=== PATIENT | male | born 1940 | race Caucasian/White ===

== ENCOUNTER → 2016-07-22 07:37 | Outpatient (CLI) | payer MEDICARE, OTHER ==
[2015-09-16 10:30] VITALS: BMI 25.8
[~2016-07-22 07:37] MED LIST: BAYER CHEWABLE81 MG PO; CYMBALTA60 MG PO; FLUTICASONE PRO16 GM NASAL; FOLIC ACID1 MG; HYDROCODONE-APA1 TAB PO; LIPITOR20 MG PO; LOTENSIN20 MG PO; NASONEX NASAL S17 GM NS; PROTONIX40 MG PO; SEROQUEL50 MG PO; ULTRAM50 MG PO
== END | disposition home or self-care (01) ==
LOC: D.CT 07:37
DX: R51 Headache (principal); R59.0 Localized enlarged lymph nodes

== ENCOUNTER → 2016-09-01 10:17 | Outpatient (CLI) | payer MEDICARE, OTHER ==
[2015-09-16 10:30] VITALS: BMI 25.8
== END | disposition home or self-care (01) ==
LOC: D.CT 10:17
DX: Z85.46 Personal history of malignant neoplasm of prostate (principal)

== ENCOUNTER → 2016-09-26 12:34 | Outpatient (CLI) | payer MEDICARE, OTHER ==
[2015-09-16 10:30] VITALS: BMI 25.8
== END | disposition home or self-care (01) ==
LOC: D.US 12:34
DX: I73.9 Peripheral vascular disease, unspecified (principal); M79.605 Pain in left leg; M79.604 Pain in right leg

== ENCOUNTER → 2017-01-25 09:38 | Outpatient (CLI) | payer MEDICARE, OTHER ==
[2015-09-16 10:30] VITALS: BMI 25.8
== END | disposition home or self-care (01) ==
LOC: D.US 09:38
DX: R74.8 Abnormal levels of other serum enzymes (principal)

== ENCOUNTER → 2017-03-13 14:47 | Outpatient (CLI) | payer MEDICARE, OTHER ==
[2015-09-16 10:30] VITALS: BMI 25.8
== END | disposition home or self-care (01) ==
LOC: D.LABREF 14:47
DX: M17.12 Unilateral primary osteoarthritis, left knee (principal); Z11.2 Encounter for screening for other bacterial diseases

== ENCOUNTER → 2017-03-29 08:31 | Outpatient (CLI) | payer MEDICARE, OTHER ==
[2015-09-16 10:30] VITALS: BMI 25.8
== END | disposition home or self-care (01) ==
LOC: D.CT 08:31
DX: R10.9 Unspecified abdominal pain (principal)

== ENCOUNTER 2017-04-02 20:12 | Emergency (ER) | payer MEDICARE, OTHER ==
[2015-09-16 10:30] VITALS: BMI 25.8
[2017-04-02 22:02] LABS: BASOPHILS 0.5 % (0-2); EOSINOPHILS 2.2 % (0-7); IMMATURE GRANULOCYTES 0.3 % (0-5); LYMPHOCYTES 17.8 % (15-50); MCH 34.3 pg (26.0-34.0); MCHC 34.9 g/dL (31.0-37.0); MCV 98.4 fL (80.0-100.0); MEAN PLATELET VOLUME 11.1 fL (7.4-10.4); MONOCYTES 9.3 % (2-11); NEUTROPHILS 69.9 % (40-80); RBC 4.37 10x6/uL (4.20-6.10); RDW 15.1 % (11.5-14.5); WBC 7.6 10x3/uL (4.8-10.8)
[2017-04-02 22:03] LABS: PLATELET COUNT 143 10x3/uL (130-400)
[2017-04-02 22:13] LABS: ALBUMIN 2.9 g/dL (3.4-5.0); ALKALINE PHOSPHATASE 83 U/L (46-116); ALT (SGPT) 234 U/L (10-68); BILIRUBIN - TOTAL 1.15 mg/dL (0.2-1.3); CALC OSMOLALITY 289 mosm/kg (275-300); CALCIUM 9.8 mg/dL (8.5-10.1); CARBON DIOXIDE 26.2 mmol/L (21.0-32.0); CHLORIDE - SERUM 108 mmol/L (98-107); CREATININE - SERUM 1.2 mg/dL (0.6-1.3); GLUCOSE 183 mg/dL (74-106); POTASSIUM - SERUM 4.4 mmol/L (3.5-5.1); PROTEIN - SERUM 6.6 g/dL (6.4-8.2); SODIUM 142 mmol/L (136-145); UREA NITROGEN 19 mg/dL (7-18); eGFR NON AFRICAN AMERICAN 63 mL/min (90-120)
[2017-04-02 22:14] LABS: TROPONIN-I < 0.017 ng/mL (0.000-0.060)
== END 2017-04-02 22:53 | disposition home or self-care (01) ==
LOC: D.ER 20:12
PROVIDERS: Nurse Practitioner Family
DX: S29.012A Strain of muscle and tendon of back wall of thorax, initial encounter (principal); X50.0XXA Overexertion from strenuous movement or load, initial encounter; Y93.89 Activity, other specified; Y92.019 Unspecified place in single-family (private) house as the place of occurrence of the external cause; M19.011 Primary osteoarthritis, right shoulder; I10 Essential (primary) hypertension; Z85.46 Personal history of malignant neoplasm of prostate; Z85.038 Personal history of other malignant neoplasm of large intestine; R00.1 Bradycardia, unspecified; I44.0 Atrioventricular block, first degree

== ENCOUNTER → 2017-04-18 11:41 | Outpatient (CLI) | payer MEDICARE, OTHER ==
[2015-09-16 10:30] VITALS: BMI 25.8
== END | disposition home or self-care (01) ==
LOC: D.MRI 11:30
DX: M54.5 Low back pain (principal)

== ENCOUNTER 2017-09-28 06:36 | Inpatient (IN) | payer MEDICARE, OTHER ==
[~2017-09-28] VITALS: Ht 182.9 cm; Wt 81.8 kg
[2017-09-28 07:15] LABS: BASOPHILS 0.2 % (0-2); EOSINOPHILS 1.6 % (0-7); HEMATOCRIT 48.3 % (42.0-54.0); HEMOGLOBIN 17.3 g/dL (13.5-17.5); IMMATURE GRANULOCYTES 0.3 % (0-5); MCH 35.2 pg (26.0-34.0); MCHC 35.8 g/dL (31.0-37.0); MCV 98.2 fL (80.0-100.0); MEAN PLATELET VOLUME 10.2 fL (7.4-10.4); MONOCYTES 8.1 % (2-11); NEUTROPHILS 80.8 % (40-80); PLATELET COUNT 169 10x3/uL (130-400); RBC 4.92 10x6/uL (4.20-6.10); RDW 14.5 % (11.5-14.5); WBC 15.4 10x3/uL (4.8-10.8)
[2017-09-28 07:35] LABS: ALBUMIN 3.8 g/dL (3.4-5.0); ANION GAP 12.1 mmol/L (8-16); BILIRUBIN - TOTAL 0.73 mg/dL (0.2-1.3); CALCIUM 9.4 mg/dL (8.5-10.1); CARBON DIOXIDE 27.7 mmol/L (21.0-32.0); CREATININE - SERUM 1.2 mg/dL (0.6-1.3); POTASSIUM - SERUM 3.8 mmol/L (3.5-5.1); PROTEIN - SERUM 7.8 g/dL (6.4-8.2)
[2017-09-28 07:45] LABS: INR 0.96 (0.85-1.17); PROTIME 12.4 SECONDS (11.6-15.0)
[2017-09-28 07:56] LABS: APPEARANCE HAZY (CLEAR); BACTERIA FEW /hpf (NONE SEEN); BILIRUBIN NEGATIVE (NEGATIVE); COLOR DK YELLOW (YELLOW); EPITHELIAL CELLS OCC /hpf (0-5); GLUCOSE NEGATIVE (NEGATIVE); HYALINE CAST 0-5 /lpf (NONE SEEN); KETONE NEGATIVE (NEGATIVE); MUCUS >1+ /lpf (NONE SEEN); NITRITE NEGATIVE (NEGATIVE); PROTEIN 1+ mg/dL (NEGATIVE); SPECIFIC GRAVITY 1.025 (1.005-1.020); UROBILINOGEN NORMAL (NORMAL); WHITE CELLS - URINE RARE /hpf (0-5)
[2017-09-28 08:16] LABS: AMYLASE - SERUM 72 U/L (25-115); CKMB 2.1 U/L (0.0-3.6); CREATINE KINASE 125 UL (21-232)
[2017-09-28 08:18] LABS: TROPONIN-I < 0.017 ng/mL (0.000-0.060)
[2017-09-28 09:01] VITALS: BP 133/74
[2017-09-28 10:00] VITALS: BP 128/72
[2017-09-28] MEDS ORDERED: SEROQUEL25 MG PO (12:33)
[2017-09-28 12:36] VITALS: BP 141/78; BMI 24.4
[2017-09-28 15:06] VITALS: Ht 182.9 cm; Wt 81.8 kg
[2017-09-28] MEDS ORDERED: IMITREX100 MG PO (15:39)
[2017-09-28] MEDS ORDERED: LEVOXYL25 MCG PO (15:40)
[2017-09-28] MEDS ORDERED: ZANAFLEX4 MG PO (15:43)
[2017-09-28] MEDS ORDERED: XYZAL5 MG PO (15:44)
[2017-09-28] MEDS ORDERED: COLACE100 MG PO (15:47)
[2017-09-28] MEDS ORDERED: ACETAMINOPHEN325 MG PO (15:54)
[2017-09-28] MEDS ORDERED: FOLBIC RF TABL1 EACH PO (15:55)
[2017-09-28] MEDS ORDERED: FOLATE0.4 MG PO (15:56)
[2017-09-28 20:24] VITALS: BP 164/81
[2017-09-28 23:41] VITALS: BP 143/84
[2017-09-29 04:04] VITALS: BP 134/74
[2017-09-29 06:37] LABS: BASOPHILS 0.3 % (0-2); HEMATOCRIT 42.4 % (42.0-54.0); HEMOGLOBIN 14.7 g/dL (13.5-17.5); IMMATURE GRANULOCYTES 0.2 % (0-5); LYMPHOCYTES 22.9 % (15-50); MCH 34.2 pg (26.0-34.0); MCHC 34.7 g/dL (31.0-37.0); MCV 98.6 fL (80.0-100.0); MEAN PLATELET VOLUME 10.5 fL (7.4-10.4); MONOCYTES 10.6 % (2-11); PLATELET COUNT 142 10x3/uL (130-400); RDW 14.3 % (11.5-14.5)
[2017-09-29 06:39] LABS: WBC 8.8 10x3/uL (4.8-10.8)
[2017-09-29 06:42] LABS: ALKALINE PHOSPHATASE 41 U/L (46-116); ALT (SGPT) 23 U/L (10-68); BILIRUBIN - TOTAL 0.65 mg/dL (0.2-1.3); CALC OSMOLALITY 285 mosm/kg (275-300); CALCIUM 8.2 mg/dL (8.5-10.1); CARBON DIOXIDE 28.3 mmol/L (21.0-32.0); CHLORIDE - SERUM 107 mmol/L (98-107); CREATININE - SERUM 0.9 mg/dL (0.6-1.3); GLUCOSE 92 mg/dL (74-106); POTASSIUM - SERUM 3.9 mmol/L (3.5-5.1); SODIUM 142 mmol/L (136-145); UREA NITROGEN 20 mg/dL (7-18); eGFR NON AFRICAN AMERICAN 87 mL/min (90-120)
[2017-09-29 06:44] LABS: PROTEIN - SERUM 5.8 g/dL (6.4-8.2)
[2017-09-29 09:01] VITALS: BP 131/69
== END 2017-09-29 10:59 | disposition left against medical advice (07) | DRG 390 ==
LOC: D.ER 06:36 → D.MS 10:03 → D.EDHOLD 10:03 → D.MS 11:31
PROVIDERS: Emergency Medicine; Family Medicine
PROC: 0D9670Z Drainage of Stomach with Drainage Device, Via Natural or Artificial Opening (ICD-10-PCS; principal; 2017-09-28)
DX: K56.51 Intestinal adhesions [bands], with partial obstruction (principal); I10 Essential (primary) hypertension; F41.9 Anxiety disorder, unspecified; F17.200 Nicotine dependence, unspecified, uncomplicated; I48.91 Unspecified atrial fibrillation; Z85.46 Personal history of malignant neoplasm of prostate; Z85.038 Personal history of other malignant neoplasm of large intestine

== ENCOUNTER 2020-07-11 20:33 | Emergency (ER) | payer MEDICARE, OTHER ==
[~2020-07-11] VITALS: Ht 182.9 cm; Wt 97.5 kg
[~2020-07-11 20:33] MED LIST changes: +ACETAMINOPHEN325 MG PO; +COLACE100 MG PO; +FOLATE0.4 MG PO; +FOLBIC RF TABL1 EACH PO; +IMITREX100 MG PO; +LEVOXYL25 MCG PO; +SEROQUEL25 MG PO; +XYZAL5 MG PO; +ZANAFLEX4 MG PO
[2020-07-11 20:40] VITALS: Ht 182.9 cm; Wt 97.5 kg
[2020-07-11 21:15] LABS: BASOPHILS 0.2 % (0-2); EOSINOPHILS 1.1 % (0-7); HEMATOCRIT 52.5 % (42.0-54.0); HEMOGLOBIN 18.6 g/dL (13.5-17.5); IMMATURE GRANULOCYTES 0.5 % (0-5); LYMPHOCYTE ABS# 2.92 10x3/uL (1.32-3.57); LYMPHOCYTES 14.9 % (15-50); MCH 33.2 pg (26.0-34.0); MCHC 35.4 g/dL (31.0-37.0); MCV 93.8 fL (80.0-100.0); MEAN PLATELET VOLUME 10.5 fL (7.4-10.4); MONOCYTES 5.9 % (2-11); NEUTROPHIL ABS# 15.12 10x3/uL (1.78-5.38); NEUTROPHILS 77.4 % (40-80); RDW 13.9 % (11.5-14.5); WBC 19.6 10x3/uL (4.8-10.8)
[2020-07-11 21:17] LABS: PLATELET COUNT 248 10x3/uL (130-400)
[2020-07-11 21:18] LABS: BILIRUBIN NEGATIVE (NEGATIVE); KETONE NEGATIVE (NEGATIVE); NITRITE NEGATIVE (NEGATIVE); UROBILINOGEN NORMAL mg/dL (< 2)
[2020-07-11 21:33] LABS: CALC OSMOLALITY 288 mosm/kg (275-300); CALCIUM 11.4 mg/dL (8.5-10.1); CARBON DIOXIDE 23.9 mmol/L (21.0-32.0); CHLORIDE - SERUM 104 mmol/L (98-107); CREATININE - SERUM 1.7 mg/dL (0.6-1.3); POTASSIUM - SERUM 4.2 mmol/L (3.5-5.1); SODIUM 141 mmol/L (136-145); UREA NITROGEN 26 mg/dL (7-18); eGFR NON AFRICAN AMERICAN 42 mL/min (90-120)
[2020-07-11 21:34] LABS: GLUCOSE 158 mg/dL (74-106)
[2020-07-11 21:42] LABS: ALBUMIN 4.2 g/dL (3.4-5.0); ALKALINE PHOSPHATASE 100 U/L (30-120); ALT (SGPT) 21 U/L (10-68); AMYLASE - SERUM 71 U/L (25-115); BILIRUBIN - TOTAL 0.49 mg/dL (0.2-1.3); LIPASE 114 U/L (73-393); PROTEIN - SERUM 8.5 g/dL (6.4-8.2)
[2020-07-11 21:44] LABS: TROPONIN-I < 0.017 ng/mL (0.000-0.060)
== END 2020-07-11 23:50 | disposition other institution (70) ==
LOC: D.ER 20:33
PROVIDERS: Student in an Organized Health Care Education/Training Program
DX: R10.9 Unspecified abdominal pain (principal)